=== PATIENT | female | born 1965 | race African-American/Black ===

== ENCOUNTER 2021-09-06 06:30 | Day surgery (SDC) | payer OTHER ==
[2021-09-06] MEDS: TROPICAMIDE 1% OPTH 3 ML BOT ONE ×3 (06:30→07:00)
[2021-09-06] MEDS: KETOROLAC OPTHALMIC 5 ML BOT ONE ×3 (06:30→07:00)
[2021-09-06] MEDS: MOXIFLOXACIN HCL 0.5% 3ML OPTH OPTH ONE ×3 (06:30→07:00)
[2021-09-06] MEDS: CYCLOPENTOLATE 2% OPTH 2 ML ONE ×3 (06:30→07:00)
[2021-09-06] MEDS: PHENYLEPHRINE 2.5% OPTH 2 ML ONE ×3 (06:30→07:00)
[2021-09-06] MEDS ORDERED: NA CHLORIDE 0.9% 1,000 ML ONE (06:36)
[2021-09-06] MEDS ORDERED: TETRACAINE HCL 0.5% 4ML OPTH ONE (06:42)
[2021-09-06] MEDS ORDERED: MIDAZOLAM HCL 2 MG/2 ML INJ ONE (07:08)
[2021-09-06] MEDS ORDERED: propofoL 200 MG/20 ML VIAL IV ONE (07:09)
[2021-09-06] MEDS ORDERED: POVIDONE-IODINE 5% EYE DROPS ONE (07:09)
[2021-09-06] MEDS ORDERED: BSS OPTHALMIC SOL 15 ML BOT OPTH ONE (07:09)
[2021-09-06] MEDS ORDERED: BALANCED SALT IRRIG PLAIN 500 ML BTL IRR ONE (07:09)
[2021-09-06] MEDS ORDERED: EPINEPHRINE/PF 1 MG/ML AMP ONE (07:09)
[2021-09-06] MEDS ORDERED: FENTANYL CITR 100 MCG/2 ML ONE (07:09)
[2021-09-06] MEDS ORDERED: TOBRADEX 0.3-0.1% OPTH OINTMENT ONE (07:09)
[2021-09-06] MEDS ORDERED: LIDOCAINE 2% MPF 5 ML VIAL ONE (07:09)
[2021-09-06] MEDS ORDERED: DUOVISC 1 KIT OPTH ONE ×2 (07:11→08:44)
[2021-09-06] MEDS ORDERED: ONDANSETRON 4 MG/2 ML VIAL ONE (09:20)
[2021-09-06 09:42] VITALS: O2SAT 100
[2021-09-06] MEDS ORDERED: MANNITOL 250 ML IV ONE (10:00)
[2021-09-06] MEDS ORDERED: ACETAMINOPHEN 325 MG TABLET ONE (11:01)
[2021-09-06 11:17] VITALS: BP 134/75; TEMP 97.9
--- NOTE | 2021-09-08 01:03 | OP ---
Date of Procedure: 09/06/2021 Surgeon: Romain Galvan MD Preoperative Diagnosis: Visually significant cataract, right eye. Postoperative Diagnosis: Visually significant cataract, right eye. Procedure Performed: Cataract extraction of right eye with limited anterior vitrectomy with placemen t of toric intraocular lens with optic capture. Description Of Procedure: After being properly identified in the preoperative holding area, the rayne ent was taken back to the operating room where a time-out was performed. The patient was then preppe d and draped in the normal sterile fashion. Examination of the eye underneath the operating microsco pe revealed a visual impressive cataract along with excellent dilation along with my preoperative mar ks at 180 and 90 degrees for alignment of the toric lens. Grasping the globe with a pair of 0.12 for ceps and putting into alignment. This marker was used in the operative alignment with toric lens samantha culated preoperatively at 21 degrees, was marked using a Sinskey hook. Then, paracentesis wounds wer e made superiorly at 12 o'clock and inferiorly at 6 o'clock using a paracentesis blade and the anteri or chamber filled with viscoelastic. The main phaco incision wound was made temporally using a 2.75 mm keratome in a triplane fashion. Then, a continuous curvilinear capsulorrhexis was created using a cystotome and completed with Utrata forceps. Hydrodissection and delineation of the wounds were car ried out using a Casas cannula resulting in free rotation of the lens nucleus and thereafter the lens was removed in a standard divide and conquer technique. After removal of 2 quadrants, it was noted that there was difficult followability on the third quadrant and a posterior capsular rupture was imm ediately suspected. Additional viscoelastic was added and the phaco handpiece removed. Examination did reveal a posterior capsule rupture and we set up for an anterior vitrector using a 21 gauge vitre cting system. The sideport incisions were enlarged slightly in order to accommodate the larger diame ter 21 gauge and a limited anterior vitrectomy was carried out first on cut I/A and then later with I /A cut and alternating back and forth. The vast majority of the remaining half of the cataract was r emoved; however, a small portion of nucleus, less than 1/8th total, was lost to the vitreous. Cortic al cleanup was achieved again using an anterior vitrector and examination of the remaining capsule re vealed a complete 360 degrees anterior capsulotomy with a posterior capsule split through and through . A three-piece IOL was available and because of the adequate anterior capsule support, I believe th at I could place the haptics into the capsular bag and prolapsed the anterior fossa into the sulcus w ith good optic capture and this has been described. This was carried out with the careful use of a S inskey and anterior to the anterior capsule. An additional viscoelastic course was added during this maneuver of procedure. Once this was confirmed, a suture was placed through the main pha co incision and much of the viscoelastic was removed using a dry aspiration technique using a BSS rk f filled on a syringe and cannula. Additional sutures were placed through each of the paracentesis w ounds for stability and a second suture was placed through the main phaco incision as well following hydration of all the wounds. IV mannitol was ordered. The patient was taken to the postop recovery area in stable condition having tolerated the procedure well. Complications were the posterior capsu le hole noted below as well as the loss of lens material. The patient is to follow up with myself, Cam Galvan, at the [facility] [place] tomorrow morning, and I will examine her, where I fully anticipate her cornea to be extremely cloudy, and will put her in touch with a retina specialis t, who can evaluate for possible vitrectomy for the nuclear remnants. Implants placed were Esequiel mod el [id number], power 18.5 diopter, serial #[id number]. Specimens: There were no specimens sent or drains placed. LAURA/LEXII Voice ID: [id number] Report ID: [id number]
== END 2021-09-06 11:25 | disposition home or self-care (01) ==
LOC: OR 06:30
PROVIDERS: ATTEND Ophthalmology
PROC: 08RJ3JZ Replacement of Right Lens with Synthetic Substitute, Percutaneous Approach (ICD-10-PCS; 2021-09-06)
PROC: 08B43ZZ Excision of Right Vitreous, Percutaneous Approach (ICD-10-PCS; principal; 2021-09-06 07:30)
DX: H26.8 Other specified cataract (principal); H54.61 Unqualified visual loss, right eye, normal vision left eye; Z20.822 Contact with and (suspected) exposure to COVID-19
CPT/HCPCS: 67005; 66982; 82947; U0002; J2704; J0171; J2250; J3010; J7030; J2405; V2787; V2630